=== PATIENT | female | born 1990 | race Caucasian/White ===

== ENCOUNTER 2024-03-03 17:49 | Emergency (ER) | payer OTHER ==
--- NOTE | 2024-03-03 19:11 | XRAY Report ---
PROCEDURE: Wrist 3+V LT INDICATIONS: FELL/PAIN + TENDERNESS L WRIST TECHNIQUE: 3 views of the wrist were acquired. COMPARISON: None. FINDINGS: Evaluation limited due to suboptimal positioning. No fracture or dislocation. The joint spaces are pr eserved. Negative ulnar variance. IMPRESSION: No acute fracture or dislocation of the left wrist. Reviewed by: Maykel Miller MD on 03/03/2024 7:10 PM PDT Approved by: Maykel Miller MD on 03/03/2024 7:10 PM PDT Station ID: [id number]
--- NOTE | 2024-03-03 19:12 | XRAY Report ---
PROCEDURE: Forearm LT INDICATIONS: fell/pain + tenderness L FOREARM TECHNIQUE: 2 views of the forearm were acquired. COMPARISON: None. FINDINGS: Limited evaluation due to suboptimal positioning. No fracture or dislocation. IMPRESSION: No acute fracture or dislocation of the left forearm. Reviewed by: Maykel Miller MD on 03/03/2024 7:11 PM PDT Approved by: Maykel Miller MD on 03/03/2024 7:11 PM PDT Station ID: [id number]
--- NOTE | 2024-03-03 19:14 | XRAY Report ---
PROCEDURE: Elbow 3+V LT INDICATIONS: Trauma TECHNIQUE: 3 views of the elbow were acquired. COMPARISON: None. FINDINGS: Limited evaluation due to suboptimal positioning. [id number] elbow joint effusion with a mildl y displaced radial head fracture with intra-articular extension to the radiocapitellar joint. Additio nal fractures of the tip of the coronoid process and trochlea may be present as well. IMPRESSION: 1.Limited evaluation due to positioning. 2.Acute, mildly displaced and intra-articular fracture of the radial head. 3.Possible fractures of the tip of the coronoid process and trochlea. Reviewed by: Maykel Miller MD on 03/03/2024 7:13 PM PDT Approved by: Maykel Miller MD on 03/03/2024 7:13 PM PDT Station ID: [id number]
--- NOTE | 2024-03-03 20:16 | ED Physician Documentation ---
History of Present Illness - Stated complaint Stated Complaint: LT ARM INJ - Chief complaint Chief Complaint: Ext Problem - Additonal information Additional information: 33-year-old female with history of right radial head fracture, left hand dominant presents to the emergency department after mechanical ground-level fall falling on outstretched arm of her right arm. She has pain with any sort of rotation of her forearm to her elbow. No wrist pain no hand pain mild shoulder pain but full range of motion without any crepitus or popping. PD PAST MEDICAL HISTORY - Past Medical History Past Medical History: Yes Cardiovascular: None Respiratory: None Neuro: None Endocrine/Autoimmune: HyPOthyroidism GI: None PATROL MOTHER: None : None HEENT: None Psych: Depression, Other Musculoskeletal: None Derm: None - Past Surgical History Past Surgical History: No - Present Medications Home Medications: Ambulatory Orders Medication Instructions Recorded Confirmed Cariprazine HCl [Vraylar] 6 mg PO DAILY 03/03/24 Levothyroxine [Synthroid] 88 mcg PO DAILY 03/03/24 lamoTRIgine [LaMICtal] 25 mg PO DAILY 03/03/24 - Allergies Allergies/Adverse Reactions: Allergies Allergy/AdvReac Type Severity Reaction Status Date / Time hydrocodone [From Vicodin] AdvReac Nausea Verified 03/03/24 18:20 morphine AdvReac Nausea Verified 03/03/24 18:19 - Social History Does the pt smoke?: No Smoking Status: Never smoker Does the pt drink ETOH?: Yes Does the pt have substance abuse?: No - Immunizations Immunizations are current?: Yes - POLST Patient has POLST: No PD ED PE NORMAL - Vitals Vital signs reviewed: Yes - General General: Alert and oriented X 3, No acute distress, Well developed/nourished - HEENT HEENT: Atraumatic, PERRL - Neck Neck: No bony TTP, C-Spine cleared by NEXUS criteria - Respiratory Respiratory: No respiratory distress, Clear bilaterally - Abdomen Abdomen: Soft - Extremities Extremities: Other (Left upper extremity: tenderness to generalized elbow, limited ROM to elbow, full ROm to left wrist, and left shoulder with strong radial pulse. ) Results - Vitals Vitals: Vital Signs - 24 hr 03/03/24 03/03/24 20:18 22:18 Temperature 36.3 C L Heart Rate 72 75 Respiratory 16 Rate Blood Pressure 125/67 133/68 H O2 Saturation 100 98 Oxygen O2 Source Room air - Rads (name of study) left upper extremity ct w/o Relevant Findings:: Final report received, EMP independent interpretation of test, Other (Intra-articular fracture of the radial head with mild combination no dislocation nondisplaced coronoid process fracture without dislocation trochlear fracture cannot be identified) Left elbow x-ray Relevant Findings:: Final report received, EMP independent interpretation of test, Other (Acute mildly displaced and intra-articular fracture of the radial head possible fracture of the tip of the coronoid process and trochlea) Left wrist x-ray Relevant Findings:: Final report received, EMP independent interpretation of test, Other (No acute bony fractures or dislocations) Left forearm x-rays Relevant Findings:: Final report received, EMP independent interpretation of test, Other (No acute bony fractures or abnormalities) Procedures - Splint (location) - Minor posterior long arm splint Splint applied by: Nurse, Tech Type of splint: Fiberglass, Long arm Other: Patient tolerated well, No complications, Neurovascular intact, Good alignment, Sling provided PD Medical Decision Making - ED course ED course: 33-year-old female presents emergency department for acute left arm pain after a mechanical ground-level fall. X-rays completed of the left wrist and left forearm no acute abnormalities are found to visualize. X-rays of the left elbow reveal acute mildly displaced and intra-articular fracture of the radial head possible fracture of the tip of the coronoid process and trochlea. I spoke with Dr. Carnes about these findings and he recommended doing a left upper extremity CT for further evaluation. CT without con of the left upper extremity was complete for further evaluation which revealed a nondisplaced coronoid process fracture without dislocation a true clear fracture cannot be identified. Zaynab funk of this Dr. Carnes with Ortho suggest a posterior long-arm splint with a sling and follow-up with patient outpatient in clinic. She was offered pain medication but said that she felt like her pain is well-controlled with Tylenol here in the ER and would like to continue alternate between Tylenol ibuprofen as needed for pain. She is told to keep her fiberglass splint out of the water to keep it dry and to use the splint for additional support. ER return precautions given all questions answered patient is safe for discharge at this time. Departure - Departure Disposition: 01 Home, Self Care Instructions: ED Fx Radial Head Follow-Up: KATI CARNES MD [Physician No Access] - KATI CARNES MD [Physician No Access] - Comments: Thank you for trusting us with your care. We have completed a CT as well as x- rays of your left elbow and it does appear that you have a mildly displaced and intra-articular fracture of the radial head. There was originally concern for possible trochlear fracture but CT does not reveal a fracture. There is a coronoid process fracture as well. I have already spoken with Ortho surgery and they will be following up with you about scheduling an appointment but there contact information is also on their discharge paperwork. You can alternate between Tylenol ibuprofen for pain or discomfort keep elevated above your heart and come back to the ER if you are having severe pain that is not being tolerate d with the Tylenol ibuprofen. EXAM: [id number] XR/ELBL ([id number]) PROCEDURE: Elbow 3+V LT INDICATIONS: Trauma TECHNIQUE: 3 views of the elbow were acquired. COMPARISON: None. FINDINGS: Limited evaluation due to suboptimal positioning. [id number] elbow joint effusion with a mildly displaced radial head fracture with intra-articular extension to the radiocapitellar joint. Additional fractures of the tip of the coronoid process and trochlea may be present as well. IMPRESSION: 1.Limited evaluation due to positioning. 2.Acute, mildly displaced and intra-articular fracture of the radial head. 3.Possible fractures of the tip of the coronoid process and trochlea. Reviewed by: Maykel Miller MD on 03/03/2024 7:13 PM PDT Approved by: Maykel Miller MD on 03/03/2024 7:13 PM PDT Station ID: [id number] Report Electronically Signed by Maykel Miller MD 03/03/24191003/03/241912 cc: ED PHYSICIAN PT NAME: DINH VAZQUEZ MR#: [id number] REG ER/ED AGE: 33 CI DT/TM: 03/03/2410/21/2021 PCP: : 1990 ATT: SEX: F ORD: [facility] Medley [employer] EXAM: CT/UELWO ([id number]) PROCEDURE: Upper Extremity LT WO INDICATIONS: further eval of left elbow fx TECHNIQUE: Noncontrast 2 mm axial sections were acquired through the elbow joint, with coronal and sagittal reformats. For radiation dose reduction, the following was used: automated exposure control, a djustment of mA and/or kV according to patient size. COMPARISON: None. FINDINGS: Image quality: Excellent. Bones: Slightly comminuted, intra-articular fracture of the radial head. There is a small nearly nondisplaced fracture of the coronoid process. No definite other fractures, specifically the distal humerus. Bone alignment remains normal. Soft tissues: No suspicious fluid collections. The muscular bulk appears normal. IMPRESSION: Intra-articular fracture of the radial head with mild comminution. No dislocation. Essentially nondisplaced coronoid process fracture without dislocation. A trochlear fracture cannot be identified. Reviewed by: Darcy Street MD on 03/03/2024 10:04 PM PDT Approved by: Darcy Street MD on 03/03/2024 10:04 PM PDT Forms: PCP List Discharge Date/Time: 03/03/24 22:21
[2024-03-03] MEDS: ACETAMINOPHEN 325 MG TABLET PO STA (21:51)
--- NOTE | 2024-03-03 22:06 | CT Report ---
PROCEDURE: Upper Extremity LT WO INDICATIONS: further eval of left elbow fx TECHNIQUE: Noncontrast 2 mm axial sections were acquired through the elbow joint, with coronal and sagittal refo rmats. For radiation dose reduction, the following was used: automated exposure control, adjustment of mA and/or kV according to patient size. COMPARISON: None. FINDINGS: Image quality: Excellent. Bones: Slightly comminuted, intra-articular fracture of the radial head. There is a small nearly non displaced fracture of the coronoid process. No definite other fractures, specifically the distal ada ramila. Bone alignment remains normal. Soft tissues: No suspicious fluid collections. The muscular bulk appears normal. IMPRESSION: Intra-articular fracture of the radial head with mild comminution. No dislocation. Essentially nondisplaced coronoid process fracture without dislocation. A trochlear fracture cannot be identified. Reviewed by: Darcy Street MD on 03/03/2024 10:04 PM PDT Approved by: Darcy Street MD on 03/03/2024 10:04 PM PDT Station ID: [id number]
[2024-03-03 22:23] VITALS: BP 133/68; O2SAT 98
== END 2024-03-03 22:21 | disposition home or self-care (01) ==
LOC: ED 17:49
DX: S52.122A Displaced fracture of head of left radius, initial encounter for closed fracture (principal); W18.30XA Fall on same level, unspecified, initial encounter; E03.9 Hypothyroidism, unspecified; Z79.899 Other long term (current) drug therapy
CPT/HCPCS: 29105; 73080; 73090; 73110; 73200; 99284; A9270